=== PATIENT | female | born 2000 | race Native Hawaiian/Other Pacific Islander ===

== ENCOUNTER 2019-01-11 08:59 | Emergency (ER) | payer OTHER ==
[~2019-01-11] VITALS: Ht 162.6 cm; Wt 147.4 kg
[2019-01-11 09:12] VITALS: TEMP 97.8
[2019-01-11 10:42] VITALS: BP 144/90
== END 2019-01-11 10:42 | disposition home or self-care (01) ==
LOC: ED 08:59
DX: S49.92XA Unspecified injury of left shoulder and upper arm, initial encounter (principal); V43.53XA Car driver injured in collision with pick-up truck in traffic accident, initial encounter
CPT/HCPCS: 99283